=== PATIENT | female | born 1985 | race Caucasian/White ===

== ENCOUNTER 2016-12-22 19:55 | Emergency (ER) | payer BC ==
[~2016-12-22] VITALS: Ht 154.9 cm; Wt 85.5 kg
[~2016-12-22 19:55] MED LIST: ABILIFY20 MG PO; CELEXA40 MG PO; CEPHALEXIN500 M1 PO; DOXYCYCLINE 10100 MG PO; NORCO 325 MG-51 TAB PO; PERMETHRIN CREAM; SEPTRA DS 8001 TAB PO; VENTOLIN0.09 MG IH; ZITHROMAX 250M250 MG PO; ZITHROMAX Z PA250 MG PO
[2016-12-22 19:58] VITALS: BP 147/82; TEMP 98.8
[2016-12-22 21:25] VITALS: PULSE 85
== END 2016-12-22 21:26 | disposition home or self-care (01) ==
LOC: COL.ER 19:55
DX: R51 Headache (principal); F17.210 Nicotine dependence, cigarettes, uncomplicated
CPT/HCPCS: J1200; J1885; J2765; J7030

== ENCOUNTER 2017-09-24 16:26 | Emergency (ER) | payer BC ==
[~2017-09-24] VITALS: Ht 157.5 cm; Wt 79.5 kg
[2017-09-24 16:42] VITALS: TEMP 98.1
[2017-09-24] MEDS ORDERED: AMBIEN 10MG10 MG PO (16:47)
[2017-09-24] MEDS ORDERED: ABILIFY 15MG TA15 MG PO (16:48)
[2017-09-24] MEDS ORDERED: LEXAPRO20 MG PO (16:48)
[2017-09-24] MEDS ORDERED: CHANTIX 1MG1 MG PO (16:48)
[2017-09-24 17:15] LABS: COLLECTION METHOD CLEAN CATCH
[2017-09-24 17:21] LABS: PH 7 (5-8); URINE APPEARANCE Hazy; URINE BACTERIA Rare /hpf; URINE BILIRUBIN Negative (NEGATIVE); URINE BLOOD Negative (NEGATIVE); URINE COLOR Yellow; URINE GLUCOSE Negative (NEGATIVE); URINE KETONE Negative (NEGATIVE); URINE LEUKOCYTE ESTERASE Negative (NEGATIVE); URINE NITRATE Negative (NEGATIVE); URINE PROTEIN(semi-quant) Negative (NEGATIVE); URINE UROBILINOGEN Negative (NEGATIVE)
[2017-09-24 20:21] LABS: BASO % 0.5 % (0.0-2.0); EOS # 0.2 (0.0-0.7); EOS % 1.9 % (0-4.0); GRAN # 4.9 (1.4-6.5); GRAN % 55.3 % (42.2-75.2); HEMATOCRIT 39.7 % (37.0-47.0); HEMOGLOBIN 12.8 g/dl (12.5-16.0); LYMPH # 3.2 (1.2-3.4); LYMPH % 36.6 % (20.0-51.0); MEAN CELL VOLUME 95 fl (80.0-100.0); MEAN CORPUSCULAR HEMOGLOBIN 31 pg (27.0-31.0); MEAN CORPUSCULAR HGB CONC 32 g/dl (33.0-37.0); MEAN PLATELET VOLUME 9.8 fl (7.4-10.4); MONO # 0.5 (0.1-0.6); MONO % 5.4 % (1.7-9.3); PLATELET COUNT 294 K/mm3 (130-400); RED BLOOD COUNT 4.16 M/mm3 (4.10-5.30); REDCELL DISTRIBUTION WIDTH-CV 13.2 % (11.5-14.5)
[2017-09-24 20:34] LABS: ALBUMIN 4.8 gm/dL (3.5-5.0); BILIRUBIN,TOTAL 0.3 mg/dL (0.0-1.0); C-REACTIVE PROTEIN 0.9 mg/dL (0.0-0.9); CALCIUM 9.4 mg/dL (8.4-10.2); CREATININE, serum 0.68 mg/dL (0.52-1.25); POTASSIUM 3.8 mmol/L (3.4-5.0); TOTAL PROTEIN 8.1 gm/dL (6.4-8.2)
[2017-09-24 21:01] VITALS: BP 129/74; PULSE 72
== END 2017-09-24 21:02 | disposition home or self-care (01) ==
LOC: COL.ER 16:26
PROVIDERS: Emergency Medicine; Physician Assistant
DX: R10.12 Left upper quadrant pain (principal); F17.210 Nicotine dependence, cigarettes, uncomplicated; Z90.710 Acquired absence of both cervix and uterus; Z90.89 Acquired absence of other organs; Z98.890 Other specified postprocedural states

== ENCOUNTER 2017-11-09 21:47 | Emergency (ER) | payer OTHER ==
[~2017-11-09] VITALS: Ht 157.5 cm; Wt 81.8 kg
[~2017-11-09 21:47] MED LIST changes: +ABILIFY 15MG TA15 MG PO; +AMBIEN 10MG10 MG PO; +CHANTIX 1MG1 MG PO; +LEXAPRO20 MG PO
[2017-11-09 21:59] VITALS: TEMP 97.9
[2017-11-09] MEDS ORDERED: NORCO 325 MG-51 TAB PO (23:05)
[2017-11-09 23:28] VITALS: BP 119/72; PULSE 80
== END 2017-11-09 23:34 | disposition home or self-care (01) ==
LOC: COL.ER 21:47
DX: S52.601A Unspecified fracture of lower end of right ulna, initial encounter for closed fracture (principal); F31.9 Bipolar disorder, unspecified; F17.210 Nicotine dependence, cigarettes, uncomplicated; Z88.0 Allergy status to penicillin; Z88.6 Allergy status to analgesic agent; W00.0XXA Fall on same level due to ice and snow, initial encounter; Y92.009 Unspecified place in unspecified non-institutional (private) residence as the place of occurrence of the external cause
CPT/HCPCS: Q4021

== ENCOUNTER 2018-01-02 01:41 | Emergency (ER) | payer OTHER ==
[~2018-01-02] VITALS: Ht 157.5 cm; Wt 90.9 kg
[2018-01-02 01:43] VITALS: TEMP 98.1
[2018-01-02] MEDS ORDERED: NORCO 325 MG-51 TAB PO (02:21)
[2018-01-02 02:43] VITALS: BP 120/74; PULSE 84
== END 2018-01-02 02:44 | disposition home or self-care (01) ==
LOC: COL.ER 01:41
DX: S82.832A Other fracture of upper and lower end of left fibula, initial encounter for closed fracture (principal); F17.210 Nicotine dependence, cigarettes, uncomplicated; W01.0XXA Fall on same level from slipping, tripping and stumbling without subsequent striking against object, initial encounter; X50.1XXA Overexertion from prolonged static or awkward postures, initial encounter
CPT/HCPCS: J1885; J2405; Q4045

== ENCOUNTER 2018-04-15 23:03 | Emergency (ER) | payer SELFPAY ==
[2018-04-15 23:07] VITALS: TEMP 97.9
[2018-04-16 01:53] VITALS: BP 140/78; PULSE 74
== END 2018-04-16 01:57 | disposition home or self-care (01) ==
LOC: COL.ER 23:03
DX: S50.02XA Contusion of left elbow, initial encounter (principal); W18.2XXA Fall in (into) shower or empty bathtub, initial encounter; Y92.009 Unspecified place in unspecified non-institutional (private) residence as the place of occurrence of the external cause
CPT/HCPCS: J3010

== ENCOUNTER 2018-05-07 20:31 | Emergency (ER) | payer SELFPAY ==
[~2018-05-07] VITALS: Ht 154.9 cm; Wt 101.8 kg
[2018-05-07 20:34] VITALS: BP 130/68; PULSE 90; TEMP 98.6
== END 2018-05-07 22:26 | disposition home or self-care (01) ==
LOC: COL.ER 20:31
DX: H92.02 Otalgia, left ear (principal); F31.9 Bipolar disorder, unspecified; Z88.0 Allergy status to penicillin; F17.210 Nicotine dependence, cigarettes, uncomplicated

== ENCOUNTER 2018-05-26 21:07 | Emergency (ER) | payer SELFPAY ==
[~2018-05-26] VITALS: Ht 157.5 cm; Wt 95.5 kg
[2018-05-26 21:09] VITALS: BP 134/79; PULSE 100; TEMP 98.1
[2018-05-26] MEDS ORDERED: ESTRACE2 MG PO (21:36)
[2018-05-26] MEDS ORDERED: DOXYCYCLINE 10100 MG PO (22:36)
== END 2018-05-26 22:43 | disposition home or self-care (01) ==
LOC: COL.ER 21:07
DX: S43.101A Unspecified dislocation of right acromioclavicular joint, initial encounter (principal); S63.635A Sprain of interphalangeal joint of left ring finger, initial encounter; S61.452A Open bite of left hand, initial encounter; S61.451A Open bite of right hand, initial encounter; Y04.1XXA Assault by human bite, initial encounter; Y92.009 Unspecified place in unspecified non-institutional (private) residence as the place of occurrence of the external cause
CPT/HCPCS: J1885

== ENCOUNTER → 2018-06-05 | Emergency (ER) | payer SELFPAY ==
[~2018-06-05] VITALS: Ht 157.5 cm; Wt 101.8 kg
[~2018-06-05] MED LIST changes: +ESTRACE2 MG PO
[2018-06-05 15:35] VITALS: BP 143/96; PULSE 99; TEMP 98.5
[2018-06-05 16:18] LABS: BASO # 0.1 (0.0-0.2); BASO % 0.6 % (0.0-2.0); EOS # 0.1 (0.0-0.7); EOS % 1.2 % (0-4.0); GRAN # 5.2 (1.4-6.5); GRAN % 54.9 % (42.2-75.2); HEMATOCRIT 38.8 % (37.0-47.0); HEMOGLOBIN 12.9 g/dl (12.5-16.0); LYMPH # 3.4 (1.2-3.4); MEAN CELL VOLUME 93 fl (80.0-100.0); MEAN CORPUSCULAR HEMOGLOBIN 31 pg (27.0-31.0); MEAN CORPUSCULAR HGB CONC 33 g/dl (33.0-37.0); MEAN PLATELET VOLUME 9.7 fl (7.4-10.4); MONO # 0.7 (0.1-0.6); MONO % 7.1 % (1.7-9.3); PLATELET COUNT 292 K/mm3 (130-400); RED BLOOD COUNT 4.16 M/mm3 (4.10-5.30); REDCELL DISTRIBUTION WIDTH-CV 13.2 % (11.5-14.5)
[2018-06-05 16:34] LABS: ALBUMIN 4.1 gm/dL (3.5-5.0); BILIRUBIN,TOTAL 0.4 mg/dL (0.0-1.0); C-REACTIVE PROTEIN 3.5 mg/dL (0.0-0.9); CALCIUM 8.9 mg/dL (8.4-10.2); CREATININE, serum 0.62 mg/dL (0.52-1.25); POTASSIUM 3.7 mmol/L (3.4-5.0); TOTAL PROTEIN 7.4 gm/dL (6.4-8.2)
[2018-06-05 16:37] LABS: COLLECTION METHOD CLEAN CATCH
[2018-06-05 16:44] LABS: MUCOUS Present /lpf; PH 5 (5-8); URINE APPEARANCE Clear; URINE BACTERIA None Seen /hpf; URINE BILIRUBIN Negative (NEGATIVE); URINE BLOOD 1+ (NEGATIVE); URINE CALCIUM OXALATE CRYSTAL Present /hpf; URINE COLOR Yellow; URINE GLUCOSE Negative (NEGATIVE); URINE KETONE Negative (NEGATIVE); URINE LEUKOCYTE ESTERASE Negative (NEGATIVE); URINE NITRATE Negative (NEGATIVE); URINE PROTEIN(semi-quant) 1+ (NEGATIVE)
== END ==
LOC: COL.ER 15:26
PROVIDERS: Physician Assistant
DX: K52.9 Noninfective gastroenteritis and colitis, unspecified (principal); Z90.710 Acquired absence of both cervix and uterus; Z98.51 Tubal ligation status; Z88.0 Allergy status to penicillin
CPT/HCPCS: J1885; J2405; J7030; Q9967

== ENCOUNTER 2018-06-16 19:25 | Emergency (ER) | payer SELFPAY ==
[~2018-06-16] VITALS: Ht 157.5 cm; Wt 100.0 kg
[2018-06-16 19:33] VITALS: BP 135/95; TEMP 98.8
[2018-06-16 22:14] VITALS: PULSE 88
== END 2018-06-16 22:14 | disposition home or self-care (01) ==
LOC: COL.ER 19:25
DX: S50.02XA Contusion of left elbow, initial encounter (principal); Z88.0 Allergy status to penicillin; W22.8XXA Striking against or struck by other objects, initial encounter; Y92.009 Unspecified place in unspecified non-institutional (private) residence as the place of occurrence of the external cause

== ENCOUNTER 2018-07-02 22:03 | Emergency (ER) | payer SELFPAY ==
[~2018-07-02] VITALS: Ht 157.5 cm; Wt 100.0 kg
[2018-07-02 22:10] VITALS: BP 149/73; TEMP 97.8
[2018-07-02 23:02] VITALS: PULSE 82
== END 2018-07-02 23:02 | disposition home or self-care (01) ==
LOC: COL.ER 22:03
DX: L53.9 Erythematous condition, unspecified (principal); F31.9 Bipolar disorder, unspecified; Z88.0 Allergy status to penicillin; F17.210 Nicotine dependence, cigarettes, uncomplicated; Z98.890 Other specified postprocedural states; Z90.710 Acquired absence of both cervix and uterus

== ENCOUNTER → 2018-10-14 | Emergency (ER) | payer BC ==
[~2018-10-14] VITALS: Ht 154.9 cm; Wt 98.2 kg
[2018-10-14 20:50] VITALS: BP 137/68; TEMP 97.6
[2018-10-14 21:31] LABS: BASO % 0.4 % (0.0-2.0); EOS # 0.3 (0.0-0.7); EOS % 3.2 % (0-4.0); GRAN # 4.6 (1.4-6.5); GRAN % 47.9 % (42.2-75.2); HEMATOCRIT 39.3 % (37.0-47.0); LYMPH # 3.9 (1.2-3.4); LYMPH % 40.3 % (20.0-51.0); MEAN CELL VOLUME 92 fl (80.0-100.0); MEAN CORPUSCULAR HEMOGLOBIN 30 pg (27.0-31.0); MEAN CORPUSCULAR HGB CONC 33 g/dl (33.0-37.0); MEAN PLATELET VOLUME 10.5 fl (7.4-10.4); MONO # 0.8 (0.1-0.6); MONO % 7.9 % (1.7-9.3); PLATELET COUNT 285 K/mm3 (130-400); RED BLOOD COUNT 4.27 M/mm3 (4.10-5.30); REDCELL DISTRIBUTION WIDTH-CV 12.6 % (11.5-14.5)
[2018-10-14 21:35] LABS: COLLECTION METHOD CLEAN CATCH
[2018-10-14 21:39] LABS: BILIRUBIN,TOTAL 0.2 mg/dL (0.0-1.0); C-REACTIVE PROTEIN 1.2 mg/dL (0.0-0.9); CALCIUM 9.4 mg/dL (8.4-10.2); CREATININE, serum 0.69 mg/dL (0.52-1.25); TOTAL PROTEIN 7.1 gm/dL (6.4-8.2)
[2018-10-14 21:50] LABS: PH 5 (5-8); URINE APPEARANCE Hazy; URINE BACTERIA Rare /hpf; URINE BILIRUBIN Negative (NEGATIVE); URINE BLOOD 1+ (NEGATIVE); URINE COLOR Yellow; URINE GLUCOSE Negative (NEGATIVE); URINE KETONE Negative (NEGATIVE); URINE LEUKOCYTE ESTERASE Negative (NEGATIVE); URINE NITRATE Negative (NEGATIVE); URINE PROTEIN(semi-quant) Negative (NEGATIVE); URINE UROBILINOGEN Negative (NEGATIVE)
[2018-10-14 22:46] VITALS: PULSE 72
== END ==
LOC: COL.ER 20:48
PROVIDERS: Emergency Medicine
DX: R10.12 Left upper quadrant pain (principal); K21.9 Gastro-esophageal reflux disease without esophagitis; F17.210 Nicotine dependence, cigarettes, uncomplicated; Z90.710 Acquired absence of both cervix and uterus; Z98.890 Other specified postprocedural states
CPT/HCPCS: J1885

== ENCOUNTER 2018-11-11 08:48 | Emergency (ER) | payer BC ==
[~2018-11-11] VITALS: Ht 154.9 cm; Wt 104.5 kg
[2018-11-11 08:52] VITALS: TEMP 97.9
[2018-11-11 09:24] LABS: BASO % 0.4 % (0.0-2.0); EOS # 0.1 (0.0-0.7); EOS % 0.8 % (0-4.0); GRAN # 7.6 (1.4-6.5); GRAN % 71.4 % (42.2-75.2); HEMATOCRIT 43.3 % (37.0-47.0); HEMOGLOBIN 14.8 g/dl (12.5-16.0); LYMPH # 2.4 (1.2-3.4); LYMPH % 22.9 % (20.0-51.0); MEAN CELL VOLUME 90 fl (80.0-100.0); MEAN CORPUSCULAR HEMOGLOBIN 31 pg (27.0-31.0); MEAN CORPUSCULAR HGB CONC 34 g/dl (33.0-37.0); MEAN PLATELET VOLUME 10.4 fl (7.4-10.4); MONO # 0.4 (0.1-0.6); MONO % 4.1 % (1.7-9.3); PLATELET COUNT 298 K/mm3 (130-400); RED BLOOD COUNT 4.83 M/mm3 (4.10-5.30); REDCELL DISTRIBUTION WIDTH-CV 12.7 % (11.5-14.5)
[2018-11-11] MEDS ORDERED: CHANTIX 1MG1 MG PO (09:28)
[2018-11-11 09:32] LABS: ALBUMIN 4.4 gm/dL (3.5-5.0); BILIRUBIN,TOTAL 0.3 mg/dL (0.0-1.0); C-REACTIVE PROTEIN 1.2 mg/dL (0.0-0.9); CALCIUM 9.8 mg/dL (8.4-10.2); CREATININE, serum 0.71 mg/dL (0.52-1.25); POTASSIUM 3.8 mmol/L (3.4-5.0); TOTAL PROTEIN 7.9 gm/dL (6.4-8.2)
[2018-11-11 09:43] LABS: COLLECTION METHOD CLEAN CATCH
[2018-11-11] MEDS ORDERED: ZOFRAN 4MG T4 MG/TAB PO (09:46)
[2018-11-11 09:52] LABS: MUCOUS Present /lpf; PH 5 (5-8); SQUAMOUS EPITHELIAL 0-2 /hpf; URINE APPEARANCE Hazy; URINE BACTERIA Rare /hpf; URINE BILIRUBIN Negative (NEGATIVE); URINE BLOOD Negative (NEGATIVE); URINE COLOR Amber; URINE GLUCOSE Negative (NEGATIVE); URINE KETONE Negative (NEGATIVE); URINE LEUKOCYTE ESTERASE Negative (NEGATIVE); URINE NITRATE Negative (NEGATIVE); URINE PROTEIN(semi-quant) Negative (NEGATIVE); URINE UROBILINOGEN Negative (NEGATIVE)
[2018-11-11 10:37] VITALS: BP 119/80; PULSE 69
[2018-11-12] MEDS ORDERED: CIPRO 500MG TA500 MG PO (20:52)
[2018-11-12] MEDS ORDERED: FLAGYL500 MG PO (20:52)
== END 2018-11-11 10:42 | disposition home or self-care (01) ==
LOC: COL.ER 08:48
PROVIDERS: Emergency Medicine
DX: R11.2 Nausea with vomiting, unspecified (principal); R19.7 Diarrhea, unspecified
CPT/HCPCS: J2405; J7030

== ENCOUNTER 2018-11-12 14:59 | Emergency (ER) | payer BC | END 2018-11-12 20:58 | disposition home or self-care (01) | LOC: COL.ER 14:59 | DX: K52.9 Noninfective gastroenteritis and colitis, unspecified (principal); F31.9 Bipolar disorder, unspecified; F17.210 Nicotine dependence, cigarettes, uncomplicated; Z98.890 Other specified postprocedural states; Z90.710 Acquired absence of both cervix and uterus; Z88.0 Allergy status to penicillin; Z88.5 Allergy status to narcotic agent ==

== ENCOUNTER 2018-11-17 15:33 | Emergency (ER) | payer BC ==
[~2018-11-17] VITALS: Ht 154.9 cm; Wt 95.9 kg
[~2018-11-17 15:33] MED LIST changes: +CIPRO 500MG TA500 MG PO; +FLAGYL500 MG PO; +ZOFRAN 4MG T4 MG/TAB PO
[2018-11-17 15:42] VITALS: TEMP 98.6
[2018-11-17 19:00] VITALS: BP 121/88; PULSE 88
[2018-11-18 18:16] LABS: ALBUMIN 4.4 gm/dL (3.5-5.0); BILIRUBIN,TOTAL 0.2 mg/dL (0.0-1.0); C-REACTIVE PROTEIN 1.4 mg/dL (0.0-0.9); CALCIUM 9.7 mg/dL (8.4-10.2); CREATININE, serum 0.68 mg/dL (0.52-1.25); TOTAL PROTEIN 7.7 gm/dL (6.4-8.2)
[2018-11-18 22:24] LABS: BASO # 0.1 (0.0-0.2); BASO % 0.5 % (0.0-2.0); EOS # 0.3 (0.0-0.7); EOS % 3.1 % (0-4.0); GRAN # 5.7 (1.4-6.5); GRAN % 60.3 % (42.2-75.2); HEMATOCRIT 43.8 % (37.0-47.0); HEMOGLOBIN 14.7 g/dl (12.5-16.0); LYMPH # 2.8 (1.2-3.4); LYMPH % 29.8 % (20.0-51.0); MEAN CELL VOLUME 91 fl (80.0-100.0); MEAN CORPUSCULAR HEMOGLOBIN 30 pg (27.0-31.0); MEAN CORPUSCULAR HGB CONC 34 g/dl (33.0-37.0); MEAN PLATELET VOLUME 10.2 fl (7.4-10.4); MONO # 0.6 (0.1-0.6); MONO % 6.1 % (1.7-9.3); PLATELET COUNT 288 K/mm3 (130-400); RED BLOOD COUNT 4.84 M/mm3 (4.10-5.30); REDCELL DISTRIBUTION WIDTH-CV 12.8 % (11.5-14.5)
== END 2018-11-17 19:00 | disposition home or self-care (01) ==
LOC: COL.ER 15:33
PROVIDERS: Emergency Medicine
DX: K52.9 Noninfective gastroenteritis and colitis, unspecified (principal); F17.210 Nicotine dependence, cigarettes, uncomplicated; Z90.710 Acquired absence of both cervix and uterus; Z90.89 Acquired absence of other organs; Z88.0 Allergy status to penicillin; Z88.5 Allergy status to narcotic agent; Z98.890 Other specified postprocedural states

== ENCOUNTER → 2018-12-05 | Outpatient (CLI) | payer BC | LOC: COL.LAB 09:41 | DX: K51.90 Ulcerative colitis, unspecified, without complications (principal) ==

== ENCOUNTER 2018-12-21 16:53 | Emergency (ER) | payer BC ==
[~2018-12-21] VITALS: Ht 154.9 cm; Wt 104.5 kg
[2018-12-21 17:01] VITALS: BP 140/91; TEMP 97.5
[2018-12-21 19:35] VITALS: PULSE 85
== END 2018-12-21 19:35 | disposition home or self-care (01) ==
LOC: COL.ER 16:53
DX: S63.617A Unspecified sprain of left little finger, initial encounter (principal); Z87.891 Personal history of nicotine dependence; X50.0XXA Overexertion from strenuous movement or load, initial encounter; Y92.009 Unspecified place in unspecified non-institutional (private) residence as the place of occurrence of the external cause

== ENCOUNTER → 2018-12-30 | Outpatient (CLI) | payer BC ==
[2018-12-30 09:15] LABS: BASO % 0.5 % (0.0-2.0); EOS # 0.2 (0.0-0.7); EOS % 2.7 % (0-4.0); GRAN # 3.5 (1.4-6.5); HEMATOCRIT 41.8 % (37.0-47.0); HEMOGLOBIN 13.9 g/dl (12.5-16.0); LYMPH # 2.1 (1.2-3.4); LYMPH % 33.8 % (20.0-51.0); MEAN CELL VOLUME 91 fl (80.0-100.0); MEAN CORPUSCULAR HEMOGLOBIN 30 pg (27.0-31.0); MEAN CORPUSCULAR HGB CONC 33 g/dl (33.0-37.0); MEAN PLATELET VOLUME 9.8 fl (7.4-10.4); MONO # 0.4 (0.1-0.6); MONO % 6.8 % (1.7-9.3); PLATELET COUNT 292 K/mm3 (130-400); RED BLOOD COUNT 4.58 M/mm3 (4.10-5.30); REDCELL DISTRIBUTION WIDTH-CV 13.2 % (11.5-14.5)
[2018-12-30 09:28] LABS: ALBUMIN 4.3 gm/dL (3.5-5.0); BILIRUBIN,TOTAL 0.6 mg/dL (0.0-1.0); CALCIUM 9.8 mg/dL (8.4-10.2); CREATININE, serum 0.68 (0.52-1.25); POTASSIUM 4.2 mmol/L (3.4-5.0); TOTAL PROTEIN 7.7 gm/dL (6.4-8.2)
== END ==
LOC: COL.LAB 08:33
PROVIDERS: Physician Assistant
DX: K52.9 Noninfective gastroenteritis and colitis, unspecified (principal)

== ENCOUNTER 2019-01-01 16:26 | Emergency (ER) | payer BC ==
[~2019-01-01] VITALS: Ht 154.9 cm; Wt 100.9 kg
[2019-01-01 16:44] VITALS: BP 137/95; TEMP 98.6
[2019-01-01 17:27] VITALS: PULSE 86
== END 2019-01-01 17:30 | disposition home or self-care (01) ==
LOC: COL.ER 16:26
DX: S60.042A Contusion of left ring finger without damage to nail, initial encounter (principal); S60.022A Contusion of left index finger without damage to nail, initial encounter; Z88.0 Allergy status to penicillin; Z88.5 Allergy status to narcotic agent; W23.0XXA Caught, crushed, jammed, or pinched between moving objects, initial encounter; Y92.410 Unspecified street and highway as the place of occurrence of the external cause

== ENCOUNTER → 2019-01-03 | Outpatient (CLI) | payer BC ==
[~2019-01-03] MED LIST changes: +LOMOTIL 0.025 M1 TAB PO; +PHENERGAN 25 TA25 MG PO
== END ==
LOC: COL.RAD 07:35
DX: K52.9 Noninfective gastroenteritis and colitis, unspecified (principal)

== ENCOUNTER 2019-01-04 18:39 | Emergency (ER) | payer BC ==
[~2019-01-04] VITALS: Ht 154.9 cm; Wt 100.9 kg
[~2019-01-04 18:39] MED LIST changes: -LOMOTIL 0.025 M1 TAB PO; -PHENERGAN 25 TA25 MG PO
[2019-01-04 18:48] VITALS: TEMP 98.1
[2019-01-04 19:45] LABS: COLLECTION METHOD CLEAN CATCH
[2019-01-04 19:47] LABS: ALBUMIN 4.1 gm/dL (3.5-5.0); BILIRUBIN,TOTAL 0.3 mg/dL (0.0-1.0); C-REACTIVE PROTEIN 1.6 mg/dL (0.0-0.9); CALCIUM 9.6 mg/dL (8.4-10.2); CREATININE, serum 0.7 (0.52-1.25); POTASSIUM 3.9 mmol/L (3.4-5.0); TOTAL PROTEIN 7.4 gm/dL (6.4-8.2)
[2019-01-04 20:02] LABS: PH 7 (5-8); SQUAMOUS EPITHELIAL 0-2 /hpf; URINE APPEARANCE Hazy; URINE BACTERIA None Seen /hpf; URINE BILIRUBIN Negative (NEGATIVE); URINE BLOOD Negative (NEGATIVE); URINE COLOR Yellow; URINE GLUCOSE Negative (NEGATIVE); URINE KETONE Negative (NEGATIVE); URINE LEUKOCYTE ESTERASE Negative (NEGATIVE); URINE NITRATE Negative (NEGATIVE); URINE PROTEIN(semi-quant) Negative (NEGATIVE); URINE UROBILINOGEN Negative (NEGATIVE)
[2019-01-04 20:33] VITALS: BP 115/78; PULSE 69
[2019-01-04] MEDS ORDERED: LOMOTIL 0.025 M1 TAB PO (20:38)
[2019-01-04] MEDS ORDERED: PHENERGAN 25 TA25 MG PO (20:38)
== END 2019-01-04 21:20 | disposition home or self-care (01) ==
LOC: COL.ER 18:39
PROVIDERS: Emergency Medicine
DX: R10.32 Left lower quadrant pain (principal)
CPT/HCPCS: J0780; J1170; J7030

== ENCOUNTER → 2019-01-04 | Outpatient (CLI) | payer BC | LOC: COL.RAD 08:14 | DX: K52.9 Noninfective gastroenteritis and colitis, unspecified (principal) | CPT/HCPCS: A9541 ==

== ENCOUNTER 2019-01-12 02:20 | Emergency (ER) | payer SELFPAY ==
[~2019-01-12] VITALS: Ht 154.9 cm; Wt 100.9 kg
[~2019-01-12 02:20] MED LIST changes: +LOMOTIL 0.025 M1 TAB PO; +PHENERGAN 25 TA25 MG PO
[2019-01-12 02:30] VITALS: BP 122/81; TEMP 96.9
[2019-01-12 02:50] VITALS: PULSE 76
== END 2019-01-12 02:50 | disposition home or self-care (01) ==
LOC: COL.ER 02:20
DX: H92.03 Otalgia, bilateral (principal); F31.9 Bipolar disorder, unspecified; Z90.710 Acquired absence of both cervix and uterus

== ENCOUNTER 2021-02-10 23:59 | Emergency (ER) | payer SELFPAY ==
[~2021-02-10] VITALS: Ht 154.9 cm; Wt 90.5 kg
[2021-02-11 00:07] VITALS: TEMP 97.6
[2021-02-11] MEDS ORDERED: NORCO 325 MG-51 TAB PO (01:00)
[2021-02-11 01:18] VITALS: BP 132/70; PULSE 66
== END 2021-02-11 01:18 | disposition home or self-care (01) ==
LOC: COL.ER 23:59
DX: S20.211A Contusion of right front wall of thorax, initial encounter (principal); W21.01XA Struck by football, initial encounter; Y93.61 Activity, american tackle football

== ENCOUNTER 2021-04-15 14:36 | Emergency (ER) | payer SELFPAY ==
[~2021-04-15] VITALS: Ht 154.9 cm; Wt 79.5 kg
[2021-04-15 14:57] VITALS: BP 133/73; PULSE 71; TEMP 98.3
== END 2021-04-15 17:04 | disposition home or self-care (01) ==
LOC: COL.ER 14:36
DX: S83.91XA Sprain of unspecified site of right knee, initial encounter (principal); F17.200 Nicotine dependence, unspecified, uncomplicated; Z98.890 Other specified postprocedural states; W11.XXXA Fall on and from ladder, initial encounter
CPT/HCPCS: J1885

== ENCOUNTER 2021-05-21 12:27 | Emergency (ER) | payer SELFPAY ==
[~2021-05-21] VITALS: Ht 154.9 cm; Wt 79.5 kg
[2021-05-21 12:34] VITALS: TEMP 98.7
[2021-05-21 17:10] VITALS: BP 131/84; PULSE 58
== END 2021-05-21 17:15 | disposition home or self-care (01) ==
LOC: COL.ER 12:27
DX: S50.01XA Contusion of right elbow, initial encounter (principal); S60.052A Contusion of left little finger without damage to nail, initial encounter; F17.210 Nicotine dependence, cigarettes, uncomplicated; Y04.0XXA Assault by unarmed brawl or fight, initial encounter

== ENCOUNTER 2021-09-11 12:32 | Emergency (ER) | payer SELFPAY ==
[~2021-09-11] VITALS: Ht 154.9 cm; Wt 77.3 kg
[2021-09-11 12:43] VITALS: TEMP 98.2
[2021-09-11] MEDS ORDERED: ASPERCREME1 EACH TP (13:29)
[2021-09-11] MEDS ORDERED: NORCO 325 MG-51 TAB PO (13:29)
[2021-09-11 13:50] VITALS: BP 120/78; PULSE 80
== END 2021-09-11 13:50 | disposition home or self-care (01) ==
LOC: COL.ER 12:32
DX: S22.31XA Fracture of one rib, right side, initial encounter for closed fracture (principal); V49.40XA Driver injured in collision with unspecified motor vehicles in traffic accident, initial encounter
CPT/HCPCS: A9284

== ENCOUNTER 2021-10-15 11:16 | Emergency (ER) | payer SELFPAY ==
[~2021-10-15] VITALS: Ht 154.9 cm; Wt 75.0 kg
[~2021-10-15 11:16] MED LIST changes: +ASPERCREME1 EACH TP
[2021-10-15 11:23] VITALS: TEMP 97.8
[2021-10-15] MEDS ORDERED: AMBIEN CR6.25 MG PO (11:30)
[2021-10-15] MEDS ORDERED: ABILIFY 15MG TA15 MG PO (11:30)
[2021-10-15] MEDS ORDERED: LEXAPRO20 MG (11:31)
[2021-10-15] MEDS ORDERED: NATURAL IRON65 MG (11:31)
[2021-10-15] MEDS ORDERED: MULTI VITAMINS1 TAB PO (11:31)
[2021-10-15] MEDS ORDERED: COLACE 100100 MG/CAP PO (11:32)
[2021-10-15 11:46] LABS: COLLECTION METHOD CLEAN CATCH
[2021-10-15 11:59] LABS: BASO # 0.1 K/mm3 (0.0-0.2); BASO % 0.6 % (0.0-2.0); EOS # 0.2 K/mm3 (0.0-0.7); EOS % 2.5 % (0.0-4.0); GRAN # 5.4 K/mm3 (1.4-6.5); GRAN % 59.9 % (42.2-75.2); HEMATOCRIT 38.5 % (37.0-47.0); HEMOGLOBIN 12.6 g/dl (12.5-16.0); LYMPH # 2.8 K/mm3 (1.2-3.4); LYMPH % 31.4 % (20.0-51.0); MEAN CELL VOLUME 95 fl (80.0-100.0); MEAN CORPUSCULAR HEMOGLOBIN 31 pg (27-31); MEAN CORPUSCULAR HGB CONC 33 g/dl (33.0-37.0); MEAN PLATELET VOLUME 9.6 fl (7.4-10.4); MONO # 0.5 K/mm3 (0.1-0.6); MONO % 5.4 % (1.7-9.3); PLATELET COUNT 318 K/mm3 (130-400); RED BLOOD COUNT 4.06 M/mm3 (4.10-5.30); REDCELL DISTRIBUTION WIDTH-CV 12.1 % (11.5-14.5)
[2021-10-15 12:23] LABS: ALBUMIN 3.4 gm/dL (3.5-5.0); BILIRUBIN,TOTAL 0.2 mg/dL (0.2-1.2); C-REACTIVE PROTEIN 0.43 mg/dL (0.00-0.50); CALCIUM 8.4 mg/dL (8.4-10.2); CREATININE, serum 0.67 mg/dL (0.57-1.11); TOTAL PROTEIN 6.5 gm/dL (6.2-8.1)
[2021-10-15 12:28] LABS: MUCOUS Present (NOT PRESENT); SQUAMOUS EPITHELIAL 0-2 /hpf (0-10); URINE BACTERIA None Seen /hpf (NONE SEEN); URINE RBC 0-2 /hpf (0-2)
[2021-10-15] MEDS ORDERED: IBU800 M1 PO (12:38)
[2021-10-15 12:43] LABS: PH 6 (5-8); URINE APPEARANCE Hazy (CLEAR/HAZY); URINE BILIRUBIN Negative (NEGATIVE); URINE BLOOD Negative (NEGATIVE); URINE COLOR Yellow (YELLOW); URINE GLUCOSE Negative (NEGATIVE); URINE KETONE Negative (NEGATIVE); URINE LEUKOCYTE ESTERASE Negative (NEGATIVE); URINE NITRATE Negative (NEGATIVE); URINE PROTEIN(semi-quant) Negative (NEGATIVE); URINE UROBILINOGEN Negative (NEGATIVE)
[2021-10-15 12:46] VITALS: BP 119/75; PULSE 64
== END 2021-10-15 12:49 | disposition home or self-care (01) ==
LOC: COL.ER 11:16
PROVIDERS: Nurse Practitioner Primary Care
DX: K46.9 Unspecified abdominal hernia without obstruction or gangrene (principal); F17.210 Nicotine dependence, cigarettes, uncomplicated; Z98.890 Other specified postprocedural states; Z32.02 Encounter for pregnancy test, result negative
CPT/HCPCS: J1885; J7030; Q9967

== ENCOUNTER 2021-10-31 08:01 | Day surgery (SDC) | payer SELFPAY ==
[~2021-10-31] VITALS: Ht 154.9 cm; Wt 78.6 kg
[~2021-10-31 08:01] MED LIST changes: +AMBIEN CR6.25 MG PO; +COLACE 100100 MG/CAP PO; +IBU800 M1 PO; +LEXAPRO20 MG; +MULTI VITAMINS1 TAB PO; +NATURAL IRON65 MG
[2021-10-31] MEDS ORDERED: TYLENOL 500MG500 MG PO (08:35)
--- NOTE | 2021-10-31 09:15 | NUR ---
COMPONENT ASSEMBLER DANIEL was called by HERNANDEZ Hart for IV start in . COMPONENT ASSEMBLER stated that it was fine.
[2021-10-31 09:25] VITALS: BP 120/67; PULSE 70; TEMP 97.5
--- NOTE | 2021-10-31 11:34 | NUR ---
HERNANDEZ Cline called to inform HERNANDEZ Hart that she could not get ahold of the patients brother. She stated she left a voicemail telling him that the procedure has started.
[2021-10-31] MEDS ORDERED: NORCO 325 MG-51 TAB PO (12:10)
[2021-10-31 12:55] VITALS: BP 108/62; PULSE 63; TEMP 97.5
--- NOTE | 2021-10-31 12:55 | NUR ---
The patient arrived after general anasthesia, alert and oriented x3. Vitals obtained. The patient brought her own food/drink: Dr To and granPetBox bars. The patient began snacking. Her brother was brought in from the waiting room. Call de la cruz is at bedside. Side rails x2.
[2021-10-31 13:10] VITALS: BP 103/67; PULSE 66
--- NOTE | 2021-10-31 13:10 | NUR ---
Vitals obtained. The patient was assisted to the bathroom and was able to void. The patient expressed desire to go home. Call de la cruz is within reach. The patient is stilling at bedside.
[2021-10-31 13:25] VITALS: BP 120/61; PULSE 76
--- NOTE | 2021-10-31 13:25 | NUR ---
Vitals obtained. IV was discontinued at this time. Catheter tip intact. Pressure dressing applied. No redness or swelling noted. The patient denied needing assistance changing into her personal clothes. Her brother stepped out into the hallway to provided privacy.
--- NOTE | 2021-10-31 13:35 | NUR ---
DC instructions and educational material was reviewed with the patient and her brother. Both verbalized understanding and the patient signed the realted paperwork. Both denied having questions or concerns. The patient was escorted out to the patient entrence via wheelchair by HERNANDEZ Hart. The patient has her DC packet and personal belongings in hand and was transferred into the care of her Mother, who is present to drive the patient home.
== END 2021-10-31 13:45 | disposition home or self-care (01) ==
LOC: SDCO 08:01
DX: K42.9 Umbilical hernia without obstruction or gangrene (principal); K43.9 Ventral hernia without obstruction or gangrene; F31.9 Bipolar disorder, unspecified; F41.9 Anxiety disorder, unspecified; F17.210 Nicotine dependence, cigarettes, uncomplicated; Z79.899 Other long term (current) drug therapy; Z90.89 Acquired absence of other organs; Z90.710 Acquired absence of both cervix and uterus; Z83.3 Family history of diabetes mellitus
CPT/HCPCS: J0690; J1100; J1885; J2250; J2405; J2704; J3010; J7120

== ENCOUNTER 2022-05-08 15:30 | Emergency (ER) | payer SELFPAY ==
[~2022-05-08] VITALS: Ht 154.9 cm; Wt 79.5 kg
[~2022-05-08 15:30] MED LIST changes: +TYLENOL 500MG500 MG PO
[2022-05-08 16:11] VITALS: TEMP 97.8
[2022-05-08 19:05] VITALS: BP 111/76; PULSE 62
== END 2022-05-08 19:05 | disposition home or self-care (01) ==
LOC: COL.ER 15:30
DX: S09.90XA Unspecified injury of head, initial encounter (principal); S05.12XA Contusion of eyeball and orbital tissues, left eye, initial encounter; S63.602A Unspecified sprain of left thumb, initial encounter; S90.112A Contusion of left great toe without damage to nail, initial encounter; F17.210 Nicotine dependence, cigarettes, uncomplicated; Y04.8XXA Assault by other bodily force, initial encounter